=== PATIENT | female | born 1955 | race Caucasian/White ===

== ENCOUNTER 2016-08-15 16:43 | Emergency (ER) | payer MEDICARE ==
[~2016-08-15 16:43] MED LIST: ASPIR-LOW81 MG PO; BENADRYL 25MG C25 MG PO; CATAPRES 0.1MG0.1 MG PO; CEFTIN500 MG PO; CITALOPRAM HBR10 MG PO; CLINDAMYCIN HC300 MG PO; COLACE 100MG C100 MG PO; CYMBALTA60 MG PO; DULERA 200 MCG8.8 GM INH; ELIQUIS 5 MG TAB5 MG PO; ELIQUIS5 MG PO; FLONASE 0.05% N16 GM; HYDROCHLOROTH12.5 M1 PO; HYDROCHLOROTHIA25 MG PO; K-DUR TAB 20 M20 MEQ PO; K-TAB ER20 MEQ PO; LIPITOR TAB 1010 MG PO; LIPITOR TAB 2020 MG PO; LISINOPRIL20 MG PO; LOPRESSOR50 MG PO; MEDROL DOSEPAK 24 MG PO; MELATONIN5 MG PO; NEURONTIN 400400 MG PO; NORVASC 5 MG TAB5 MG PO; PLAVIX 75 MG TA75 MG PO; PROTONIX 40 MG40 M1 PO; SPIRIVA HANDIH18 MCG INH; TOPAMAX50 MG PO; TRAZODONE HCL50 MG PO; VENTOLIN HFA8 GM INH; VENTOLIN/PROVE0.5 ML INH; ZOFRAN4 MG PO
[2016-08-15 17:48] LABS: HEMOGLOBIN 13.4 gm/dl (12.3-15.3); RED BLOOD COUNT 4.43 M/UL (4.00-5.10); WHITE BLOOD COUNT 5.2 K/UL (4.5-11.0)
[2016-08-15 18:09] LABS: BUN/CREATININE RATIO 18 (0-10)
== END 2016-08-16 01:30 | disposition home or self-care (01) ==
LOC: ER1 16:43
PROVIDERS: Family Medicine
DX: J44.9 Chronic obstructive pulmonary disease, unspecified (principal); E87.6 Hypokalemia; I10 Essential (primary) hypertension; H66.91 Otitis media, unspecified, right ear; E11.9 Type 2 diabetes mellitus without complications; F17.200 Nicotine dependence, unspecified, uncomplicated; Z95.1 Presence of aortocoronary bypass graft
CPT/HCPCS: 36415; 71010; 80053; 82550; 82553; 83874; 84484; 85025; 93005; 99285

== ENCOUNTER 2016-08-31 01:24 | Emergency (ER) | payer MEDICARE | END 2016-08-31 04:00 | disposition home or self-care (01) | LOC: ER1 01:24 | DX: I10 Essential (primary) hypertension (principal); R11.2 Nausea with vomiting, unspecified; F17.200 Nicotine dependence, unspecified, uncomplicated; Z95.1 Presence of aortocoronary bypass graft | CPT/HCPCS: 81001; 96372; 99284; J2405 ==

== ENCOUNTER 2016-09-08 17:37 | Emergency (ER) | payer MEDICARE ==
[2016-09-08 21:49] LABS: HEMOGLOBIN 13.6 gm/dl (12.3-15.3); RED BLOOD COUNT 4.33 M/UL (4.00-5.10); WHITE BLOOD COUNT 6.8 K/UL (4.5-11.0)
== END 2016-09-08 23:10 | disposition home or self-care (01) ==
LOC: ER1 17:37
PROVIDERS: Emergency Medicine
DX: J40 Bronchitis, not specified as acute or chronic (principal); J44.9 Chronic obstructive pulmonary disease, unspecified
CPT/HCPCS: 36415; 71020; 80053; 82550; 82553; 83874; 83880; 84484; 85025; 93005; 94640; 94664; 99285

== ENCOUNTER 2016-10-26 11:46 | Emergency (ER) | payer MEDICARE ==
[2016-10-26 13:55] LABS: HEMOGLOBIN 12.3 gm/dl (12.3-15.3); RED BLOOD COUNT 3.85 M/UL (4.00-5.10); WHITE BLOOD COUNT 10.2 K/UL (4.5-11.0)
== END 2016-10-26 16:03 | disposition home or self-care (01) ==
LOC: ER1 11:46
PROVIDERS: Physician Assistant
DX: J06.9 Acute upper respiratory infection, unspecified (principal); I11.9 Hypertensive heart disease without heart failure; J44.9 Chronic obstructive pulmonary disease, unspecified; F17.200 Nicotine dependence, unspecified, uncomplicated; Z86.73 Personal history of transient ischemic attack (TIA), and cerebral infarction without residual deficits; Z95.1 Presence of aortocoronary bypass graft; Z90.49 Acquired absence of other specified parts of digestive tract; Z79.01 Long term (current) use of anticoagulants; Z79.899 Other long term (current) drug therapy
CPT/HCPCS: 36415; 71020; 80053; 81001; 82550; 82553; 83874; 84484; 85025; 93005; 99285

== ENCOUNTER 2016-11-07 09:26 | Emergency (ER) | payer MEDICARE | END 2016-11-07 16:18 | disposition home or self-care (01) | LOC: ER1 09:26 | DX: S93.602A Unspecified sprain of left foot, initial encounter (principal); S93.402A Sprain of unspecified ligament of left ankle, initial encounter; W06.XXXA Fall from bed, initial encounter; Y92.009 Unspecified place in unspecified non-institutional (private) residence as the place of occurrence of the external cause; Z86.72 Personal history of thrombophlebitis | CPT/HCPCS: 73610; 73630; 99283 ==